=== PATIENT | male | born 1960 | race Hispanic/Latino ===

== ENCOUNTER 2018-09-09 10:44 | Emergency (ER) | payer SELFPAY ==
[2018-09-09 11:49] LABS: CREATININE 0.7 mg/dL (0.5-1.5)
== END 2018-09-09 12:12 | disposition home or self-care (01) ==
LOC: EDH 10:44
DX: K40.90 Unilateral inguinal hernia, without obstruction or gangrene, not specified as recurrent (principal); Z72.0 Tobacco use
CPT/HCPCS: 36415; 80048

== ENCOUNTER 2020-12-14 12:06 | Emergency (ER) | payer OTHER, SELFPAY ==
[~2020-12-14] VITALS: Ht 170.2 cm; Wt 65.8 kg
[2020-12-14 12:08] VITALS: BP 100/65
[2020-12-14] MEDS ORDERED: FAMOTIDINE 20MG VIAL IV ONE ×2 (13:00→14:36)
[2020-12-14 13:17] LABS: BASOPHILS % (AUTO) 0.3 % (0.0-5.0); EOSINOPHILS % (AUTO) 0.3 % (0.0-8.0); HEMATOCRIT 40.2 % (42-54); LYMPHOCYTES % (AUTO) 15.7 % (21.0-51.0); MEAN CORPUSCULAR HEMOGLOBIN 30.8 pg (27.0-33.0); MEAN CORPUSCULAR HGB CONC 33.6 g/dL (32.0-36.0); MEAN CORPUSCULAR VOLUME 91.6 fL (79-99); MONOCYTES % (AUTO) 15.1 % (3.0-13.0); NEUTROPHILS % (AUTO) 68.3 % (40.0-77.0); PLATELET COUNT (AUTO) 205 K/uL (130-400); RED BLOOD CELL COUNT(AUTO) 4.39 MIL/uL (4.50-6.20); RED CELL DISTRIBUTION WIDTH 12.6 % (11.0-15.5); WHITE BLOOD COUNT (AUTO) 3.6 K/uL (4.8-10.8)
[2020-12-14 13:22] LABS: CARBON DIOXIDE 26 mmol/L (21-32); CHLORIDE 99 mmol/L (101-111); CREATININE 0.8 mg/dL (0.5-1.5); GLOMERULAR FILTR. RATE CALC 105 mL/min (>60); GLUCOSE,RANDOM 108 mg/dL (70-105); POTASSIUM 3.6 mmol/L (3.5-5.1); SODIUM SERUM 133 mmol/L (136-145); UREA NITROGEN, BLOOD 10 mg/dL (7-18)
[2020-12-14 13:22] LABS: AMPHET/METH SCREEN,URINE NEGATIVE (NEGATIVE); BARBITURATE SCREEN, URINE NEGATIVE (NEGATIVE); BENZODIAZEPINES SCREEN,URINE NEGATIVE (NEGATIVE); CANNABINOID SCREEN,URINE NEGATIVE (NEGATIVE); COCAINE SCREEN,URINE POSITIVE (NEGATIVE); OPIATE SCREEN,URINE NEGATIVE (NEGATIVE); PHENCYCLIDINE SCREEN,URINE NEGATIVE (NEGATIVE)
[2020-12-14 13:28] LABS: ALANINE AMINOTRANSFERASE 27 U/L (12-78); ALBUMIN 2.9 g/dL (3.5-5.0); ALCOHOL, BLOOD < 3 mg/dL (0-10); ASPARTATE AMINOTRANSFERASE 35 U/L (10-37); BILIRUBIN,TOTAL 0.3 mg/dL (0.2-1.0); CREATINE KINASE, TOTAL 64 U/L (21-232); TOTAL PROTEIN, SERUM 7.3 g/dL (6.0-8.3)
[2020-12-14 13:29] LABS: ACETAMINOPHEN < 1 mcg/mL (10-29); SALICYLATE < 2.8 mg/dL (2.8-20.0)
[2020-12-14] MEDS ORDERED: CEFTRIAXONE 1G VIAL IVP ONE (14:30)
[2020-12-14] MEDS ORDERED: ONDANSETRON 4MG INJ ONE (14:34)
[2020-12-14] MEDS ORDERED: ONDANSETRON 4MG INJ IVP ONE (15:00)
[2020-12-14] MEDS ORDERED: AZIT500T4 PO (15:38)
[2020-12-14] MEDS ORDERED: ONDA4TAB4 PO (15:38)
[2020-12-14] MEDS ORDERED: D-ME118S47 PO (15:38)
[2020-12-14] MEDS ORDERED: ALBU8.5H8 IH (15:40)
[2020-12-14 17:23] VITALS: BP 127/27
== END 2020-12-14 17:30 | disposition home or self-care (01) ==
LOC: EDH 12:06
DX: U07.1 COVID-19 (principal); J12.89 Other viral pneumonia; R11.2 Nausea with vomiting, unspecified
CPT/HCPCS: 36415; 71045; 80053; 80305; 82550; 84484; 85025; 87635; 87804 ×2; 87880; 93005; 96374; 96375; 99285; C9803; G0481; J0696; J2405; J3490

== ENCOUNTER 2023-02-18 21:03 | Emergency (ER) | payer OTHER ==
[~2023-02-18 21:03] MED LIST: ALBU8.5H8 IH; AZIT500T4 PO; D-ME118S47 PO; ONDA4TAB4 PO
[2023-02-18 21:06] VITALS: BP 123/77; PULSE 82; RESP 18
== END 2023-02-18 22:35 | disposition left against medical advice (07) ==
LOC: EDH 21:03
DX: M79.605 Pain in left leg (principal); Z53.21 Procedure and treatment not carried out due to patient leaving prior to being seen by health care provider
CPT/HCPCS: 99281